=== PATIENT | male | born 1990 | race Caucasian/White ===

== ENCOUNTER 2017-07-07 09:51 | Emergency (ER) | payer MEDICAID, OTHER ==
[~2017-07-07] VITALS: Ht 165.1 cm; Wt 88.2 kg
[2017-07-07] MEDS ORDERED: CLINDAMYCIN 900 MG in APPROPRIATE DILUENT 1 EA IV ONE (10:30)
[2017-07-07 10:48] LABS: BASO # 0.1 K/mm3 (0.0-0.2); EOS # 0.4 K/mm3 (0.0-0.50); EOS % 4.2 % (0.0-3.0); LARGE UNSTAINED CELL # 0.1 K/mm3 (0.0-0.4); LARGE UNSTAINED CELL % 1.3 % (0.0-4.0); LYMPH # 1.9 K/mm3 (1.5-6.5); LYMPH % 18.2 % (24.0-44.0); MEAN CORPUSCULAR HEMOGLOBIN 29.8 pg (27.0-33.0); MEAN CORPUSCULAR HGB CONC 34.4 g/dl (32.0-36.5); MEAN CORPUSCULAR VOLUME 86.6 fl (80.0-96.0); MONO # 0.4 K/mm3 (0.0-0.8); MONO % 4.6 % (0.0-5.0); NEUTROPHILS # 6.8 K/mm3 (1.8-7.7); NEUTROPHILS % 70.7 % (36.0-66.0); PLATELET COUNT, AUTOMATED 301 k/mm3 (150-450); RED CELL DISTRIBUTION WIDTH 13.9 % (11.5-14.5); WHITE BLOOD COUNT 9.6 K/mm3 (4.0-10.0)
[2017-07-07 11:02] LABS: ANION GAP 7 MEQ/L (8-16); BLOOD UREA NITROGEN 15 MG/DL (7-18); CARBON DIOXIDE LEVEL 27 MEQ/L (21-32); CHLORIDE LEVEL 105 MEQ/L (98-107); CREATININE FOR GFR 0.84 MG/DL (0.70-1.30); GLOMERULAR FILTRATION RATE > 60.0 (>60); GLUCOSE, FASTING 99 MG/DL (70-105); POTASSIUM SERUM 4.3 MEQ/L (3.5-5.1); SODIUM LEVEL 139 MEQ/L (136-145)
[2017-07-07] MEDS ORDERED: ISOVUE-370 76% 100ML VIAL (Q9967) As Ordered ONE (11:48)
--- NOTE | 2017-07-07 12:08 | REP ---
Clinical: Left periorbital swelling and erythema. Technique: Axial contrast enhanced images through the orbits with coronal and sagittal re-formations using 100 ml Isovue 370 intravenous contrast material. Findings: Left periorbital swelling is consistent with periorbital cellulitis. There is no evidence for intraconal extension. The globe, ocular musculature, intraocular fat and soft tissue structures are all normal in appearance and symmetric when compared to the unaffected right side. No abnormal discrete fluid collection or abscess appreciated. No mass lesion. The visualized sinuses and mastoid air cells are well-aerated and clear. The osseous structures are intact and normal. Impression: 1. Moderate left periorbital soft tissue swelling. 2. No evidence for intraconal/ocular extension or acute pathology. Signed by Zaire Guerrero MD 07/07/2017 12:00 P
[2017-07-07] MEDS ORDERED: CLEO300C2 PO (12:10)
[2017-07-07 12:19] VITALS: BP 139/77
== END 2017-07-07 12:19 | disposition home or self-care (01) ==
LOC: M ED 09:51
DX: H05.012 Cellulitis of left orbit (principal); F17.200 Nicotine dependence, unspecified, uncomplicated; Z88.0 Allergy status to penicillin
CPT/HCPCS: 70481; 80048; 85025; 96365; 99283; Q9967